=== PATIENT | female | born 1985 ===

== ENCOUNTER 2021-02-23 10:20 | Emergency (ER) | payer SELFPAY ==
[2021-02-23] MEDS ORDERED: SODIUM CHLORIDE 0.9% 1000 ML 1,000 ML IV ONE (11:47)
[2021-02-23] MEDS ORDERED: MORPHINE 4 MG/1 ML INJ IV ONE (11:47)
--- NOTE | 2021-02-23 11:54 | Emergency Department Report ---
HPI - General Chief Complaint: Dizziness Time Seen by Provider: 02/23/21 11:38 - HPI HPI: This is a 36-year-old -[place] female presents to the emergency department with a complaint of a 3 to 4-day history of a left-sided headache and neck pain with some left arm paresthesias. Patient says that the symptoms began Sunday night but that they were intermittent over the next few days. However, the patient says that the symptoms worsened late last night and into this morning. She has a past medical history of asthma and sciatica. She denies any vision change, slurred speech, chest pain, back pain, shortness of breath, fever. She has not taken anything for symptoms prior to presentation. ED Past Medical Hx - Past Medical History Previous Medical History?: Yes Hx Asthma: Yes Additional medical history: anxiety , panic attacks - Surgical History Past Surgical History?: No - Medications Home Medications: Home Medications Medication Instructions Recorded Confirmed Last Taken Type Cyclobenzaprine [Flexeril] 10 mg PO TID PRN #12 tablet 02/23/21 Unknown Rx ED Review of Systems ROS: Stated complaint: DIZZY/HEADACHE/STIFF NECK Other details as noted in HPI Comment: All other systems reviewed and negative Constitutional: denies: chills, fever Eyes: denies: eye pain, vision change ENT: denies: ear pain, throat pain Respiratory: denies: cough, shortness of breath Cardiovascular: denies: chest pain, palpitations Gastrointestinal: denies: abdominal pain, vomiting Genitourinary: denies: dysuria, discharge Musculoskeletal: myalgia. denies: back pain Skin: denies: rash, lesions Neurological: headache, paresthesias Physical Exam - Physical Exam Vital Signs: Vital Signs 02/23/21 10:36 Temperature 99.3 F Pulse Rate 94 H Respiratory 18 Rate Blood Pressure 120/76 O2 Sat by Pulse 97 Oximetry Physical Exam: GENERAL: The patient is well-developed well-nourished. HENT: Normocephalic. Atraumatic. Patient has moist mucous membranes. EYES: Extraocular motions are intact. No nystagmus. NECK: Supple. No midline tenderness to palpation. There is left paraspinal tenderness to palpation and down along the left side of the trapezius muscle, along with associated taut musculature. Patient has increased pain with left- sided head rotation. No meningismus signs. CHEST/LUNGS: Clear to auscultation. There is no respiratory distress noted. HEART/CARDIOVASCULAR: Regular. There is no tachycardia. There is no murmur. ABDOMEN: Abdomen is soft, nontender. Patient has normal bowel sounds. There is no abdominal distention. SKIN: Skin is warm and dry. NEURO: The patient is awake, alert, and oriented. The patient is cooperative. The patient has no focal neurologic deficits. Normal speech. Cranial nerves II through XII grossly intact. MUSCULOSKELETAL: There is no tenderness or deformity. There is decreased range of motion of the left upper extremity secondary to pain. Radial pulse +2/4 and capillary refill less than 2 seconds. ED Course Vital Signs 02/23/21 10:36 Temperature 99.3 F Pulse Rate 94 H Respiratory 18 Rate Blood Pressure 120/76 O2 Sat by Pulse 97 Oximetry ED Medical Decision Making - Lab Data Result diagrams: 02/23/21 11:46 02/23/21 11:46 - Radiology Data Radiology results: report reviewed, image reviewed interpreted by me: X-ray of the cervical spine does not show any fracture, subluxation, or any acute process. CT HEAD WITHOUT CONTRAST INDICATION / CLINICAL INFORMATION: headache, dizziness. TECHNIQUE: All CT scans at this location are performed using CT dose reduction for ALARA by means of automated exposure control. COMPARISON: None available. FINDINGS: No acute intracranial hemorrhage. Ventricles are normal in size without midline shift or mass effect. No extra axial fluid collection is seen. Mild ethmoid sinus disease ADDITIONAL FINDINGS: None. IMPRESSION: Mild ethmoid sinus disease. No other acute intracranial findings. - Medical Decision Making This patient initially presents with a complaint of a 3 to 4-day history of intermittent left-sided headache, left-sided neck pain and some radiation down the left arm. The symptoms worsened overnight and into this morning. On examin ation she does not have any focal, motor or sensory deficits and cranial nerves are intact. There is some decreased range of motion of the left upper extremity but it appears to be effort based secondary to pain. She is neurovascularly intact with radial pulse +2/4 and capillary refill less than [address] scan of the head without contrast does not show any hemorrhage, large vessel occlusion, or any other acute process. X-ray of the cervical spine does not show any fracture, subluxation, or any acute process. Patient's labs have been mostly unremarkable including CBC, metabolic panel, n ormal thyroid function, and the patient is not . Patient was given 2 different doses of IV analgesia and a muscle relaxer. She was reevaluated multiple times over multiple hours and is feeling improved. The patient is seen sleeping and/or resting comfortably at multiple times. The patient is now able to easily do left-sided head rotation and display full range of motion of her left upper extremity. Patient says that the headache appears consistent with her previous migraines. The neck and arm pain is most likely some level of cervical radiculopathy and/or neuropathy. She does not appear to have any life or limb threatening emergency that requires admission or surgical intervention. She will be discharged home to follow-up with neurosurgery. She will return to the closest emergency department with any worsening of her symptoms or with any acute distress. Critical Care Time: No Critical care attestation.: If time is entered above; I have spent that time in minutes in the direct care of this critically ill patient, excluding procedure time. ED Disposition Clinical Impression: Cervical radicular pain Headache Qualifiers: Headache type: unspecified Headache chronicity pattern: unspecified pattern Intractability: not intractable Qualified Code(s): R51.9 - Headache, unspecified Disposition: 01 HOME / SELF CARE / HOMELESS Is pt being admited?: No Condition: Stable Instructions: Cervical Radiculopathy, General Headache Without Cause Additional Instructions: Please follow-up with a primary care physician in the next few days. I am giving you a referral for a local neurosurgeon, Dr. Davis, to follow-up regarding what appears to be cervical radicular pain. You have been prescribed a medication that is sedating and therefore should not be taken prior to driving, working, and responsible for children and in no way should be mixed with alcohol of any quantity. Return to the emergency department with any worsening of your symptoms, new or concerning symptoms not addressed during this current emergency department visit, or with any acute distress. Prescriptions: Cyclobenzaprine [Flexeril] 10 mg PO TID PRN #12 tablet PRN Reason: Muscle Spasm Referrals: PRIMARY CARE, [Primary Care Provider] - 3-5 Days LULÚ DAVIS II, MD [Staff Physician] - 3-5 Days Time of Disposition: 15:47
[2021-02-23 12:47] LABS: Blood Urea Nitrogen 10 mg/dL (7-17); Calcium 9.4 mg/dL (8.4-10.2); Hemolysis Index 7
[2021-02-23 12:56] LABS: BUN/Creatinine Ratio 14
[2021-02-23] MEDS ORDERED: CYCLOBENZAPRINE 10 MG TAB PO ONE (13:00)
[2021-02-23 13:12] LABS: Basophils # (Auto) 0.1 K/mm3 (0.0-0.1); Eosinophils # (Auto) 0.2 K/mm3 (0.0-0.4); Hematocrit 39.2 % (30.3-42.9); Hemoglobin 13.2 gm/dl (10.1-14.3); Lymphocytes # (Auto) 2.1 K/mm3 (1.2-5.4); Lymphocytes % (Auto) 40.1 % (13.4-35.0); Mean Corpuscular HGB Conc 34 % (30-34); Mean Corpuscular Volume 91 fl (79-97); Monocytes # (Auto) 0.4 K/mm3 (0.0-0.8); Monocytes % (Auto) 7.3 % (0.0-7.3); Platelet Count 357 K/mm3 (140-440); Red Blood Count 4.32 M/mm3 (3.65-5.03)
--- NOTE | 2021-02-23 14:08 | Cat Scan Report ---
CT HEAD WITHOUT CONTRAST INDICATION / CLINICAL INFORMATION: headache, dizziness. TECHNIQUE: All CT scans at this location are performed using CT dose reduction for ALARA by means of automated e xposure control. COMPARISON: None available. FINDINGS: No acute intracranial hemorrhage. Ventricles are normal in size without midline shift or mass effect. No extra axial fluid collection is seen. Mild ethmoid sinus disease ADDITIONAL FINDINGS: None. IMPRESSION: Mild ethmoid sinus disease. No other acute intracranial findings. Signer Name: Reilly Wallis MD Signed: 02/23/2021 2:04 PM Workstation Name: [id number]
[2021-02-23] MEDS ORDERED: HYDROmorphone 1 MG/1 ML INJ IV ONE (14:13)
--- NOTE | 2021-02-23 15:03 | XRay Report ---
CERVICAL SPINE 4 VIEWS INDICATION: neck pain. COMPARISON: None. IMPRESSION: Normal alignment. There is mild reversal of the normal cervical lordosis which could be secondary to positioning or muscular spasm. No significant discogenic DJD or facet arthropathy. No acute osseous or soft tissue abnormality. Signer Name: Zhang Hanna Jr, MD Signed: 02/23/2021 2:59 PM Workstation Name: [id number]
[2021-02-23 16:39] VITALS: BP 127/74
== END 2021-02-23 16:59 | disposition home or self-care (01) ==
LOC: ED 10:20
DX: M54.12 Radiculopathy, cervical region (principal); R51.9 Headache, unspecified; J45.909 Unspecified asthma, uncomplicated; F41.9 Anxiety disorder, unspecified; Z88.8 Allergy status to other drugs, medicaments and biological substances; Z91.040 Latex allergy status; Z79.899 Other long term (current) drug therapy; Z91.013 Allergy to seafood
CPT/HCPCS: 36415; 70450; 72040; 80048; 84443; 84703; 85025; 96361; 96374; 96375; 99284; J1170; J2270; J7030